=== PATIENT | male | born 1955 | race Caucasian/White ===

== ENCOUNTER 2017-07-05 14:35 | Inpatient (IN) | payer OTHER, MEDICAID ==
[2017-07-05] MEDS ORDERED: NS 1,000 ML IV ONE (14:53)
[2017-07-05] MEDS ORDERED: ONDANSETRON 4 MG/2 ML VIAL IVP ONE (14:53)
--- NOTE | 2017-07-05 14:58 | EDPHY ---
H & P Stated Complaint: generalized abd/and kidney pain x 1 month/has seen pcp Time Seen by Provider: 07/05/17 14:49 - Personal History Current Tetanus/Diphtheria Vaccine: Unsure - Medical/Surgical History Hx Asthma: No Hx Chronic Respiratory Disease: No Hx Diabetes: No Hx Cardiac Disease: Yes Hx Renal Disease: No Hx Cirrhosis: No Hx Alcoholism: No Hx HIV/AIDS: No Hx Splenectomy or Spleen Trauma: No Other PMH: htn/cardiac stents/ataxia - Social History Smoking Status: Never smoked Constitutional: Initial Vital Signs Temperature (C) 37.2 C 07/05/17 14:40 Heart Rate 90 07/05/17 14:40 Respiratory Rate 18 07/05/17 14:40 Blood Pressure 148/92 H 07/05/17 14:40 O2 Sat (%) 95 07/05/17 14:40 O2 Delivery Mode Room Air Allergies/Adverse Reactions: No Known Allergies Allergy (Unverified 07/05/17 14:39) Home Medications: Medication Instructions Recorded Aspirin 81mg (*) 07/05/17 Atenolol 07/05/17 Atorvastatin Calcium 07/05/17 Escitalopram Oxalate 07/05/17 Medical Decision Making - Diagnostics Imaging Results: Imaging Impressions Abdomen CT 07/05/17 15:39 Impression: 1. Circumferential thickening of the 2nd portion of the duodenum with adjacent fat stranding and adenopathy, with apparent ulcer in the medial 2nd portion duodenum. While these findings could be reactive/inflammatory, malignancy cannot be excluded. 2. Likely reactive pancreatitis in the pancreatic head secondary to the duodenal inflammation. 3. Cholelithiasis without evidence of cholecystitis. 4. Diverticulosis. 5. Coronary artery atherosclerosis. 6. Additional findings as above. Findings discussed with Ulices Campos MD, 07/05/2017 at 17:01. Imaging: Discussed imaging studies w/ real estate economist Radiologist, I viewed and interpreted images myself ED Course/Re-evaluation: CHIEF COMPLAINT: Nausea vomiting abdominal and flank pain HISTORY OF PRESENT ILLNESS: This patient states that he has had abdominal and flank pain over the last 3 weeks apparently. He seen his primary care doctor who did a urinalysis at 1 point and said he maybe has kidney stones but no other testing was performed. The yesterday and today is abdominal pain worsened and he developed nausea and vomiting. This patient always feels nauseated, he has cerebellar ataxia. He is also wheelchair bound. He has good sensation in his abdomen. He denies any fevers or chills or systemic type symptoms. REVIEW OF SYSTEMS: A 10 point review of systems was performed and is negative with the exception of the elements mentioned in the history of present illness. PHYSICAL EXAM: HR, BP, O2 Sat, RR. Temp noted General Appearance: Alert, well hydrated, appropriate, and non-toxic appearing. Head: Atraumatic without scalp tenderness or obvious injury Eyes: Pupils equal, round, reactive to light and accommodation, EOMI, no trauma , no injection. Ears: Clear bilaterally, no perforation, normal landmarks Nose: Atraumatic, no rhinorrhea, clear. Throat: There is no erythema or exudates, no lesions, normal tonsils, mucus membranes moist. Neck: Supple, nontender, no lymphadenopathy. Respiratory: No retractions, no distress, no wheezes, and no accessory muscle use. Lungs are clear to auscultation bilaterally. Cardiovascular: Regular rate and rhythm, no murmurs, rubs, or gallops. GI: soft, nontender, non-distended, no masses, no rebound, no guarding, no peritoneal signs. Abdomen is benign Musculoskeletal: Normal active ROM of all extremities, atraumatic. Neurological: Alert, appropriate, and interactive. Abnormal cerebellar exam which is chronic Skin: No rashes, good turgor, no nodules on palpation. 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 DIAGNOSTICS/PROCEDURES/CRITICAL CARE TIME: Abdominal CT: circumferential duodenal ulcer, no perforation, associated reactive lymph nodes. DIFFERENTIAL DIAGNOSIS: The differential diagnosis for the patient's abdominal pain included but was not limited to ulcer, appendicitis, cholecystitis, hernias, testicular torsion, gastritis, and urinary tract infection. MEDICAL DECISION MAKING: This is a wheelchair-bound 61 y/o male with cerebellar ataxia who presents with a 3-week history of abdominal pain, flank pain, nausea, and vomiting. His abdomen is benign and his neuro exam is at baseline. Plan for IV, labs, UA, and abdominal CT. 4mg IV Zofran and 1L IV NS ordered. 1616: Reassessed patient and discussed laboratory findings, which are largely unremarkable. Awaiting CT results. CT shows circumferential duodenal ulcer. 80mg IV Pantoprazole ordered. GI paged. 1710: Consulted with Dr. Reddy, GI. He recommends admission and plans to scope him tomorrow. Spoke with hospitalist service. Dr. Morales accepts admission. - Data Points Laboratory Results: Laboratory Results 07/05/17 15:00 07/05/17 15:00 07/05/17 07/05/17 07/05/17 16:15 15:06 15:00 WBC RBC Hgb POC Hgb 17.3 gm/dL gm/dL (13.7-17.5) Hct POC Hct 51 % % (40-51) MCV MCH MCHC RDW Plt Count MPV Neut % (Auto) Lymph % (Auto) [place] % (Auto) Eos % (Auto) Baso % (Auto) Nucleat RBC Rel Count Absolute Neuts (auto) Absolute Lymphs (auto) Absolute Monos (auto) Absolute Eos (auto) Absolute Basos (auto) Absolute Nucleated RBC Immature Gran % Immature Gran # POC Sodium 142 mEq/L mEq/L (135-145) Sodium 143 mEq/L mEq/L (135-145) POC Potassium 3.7 mEq/L mEq/L (3.3-5.0) Potassium 4.1 mEq/L mEq/L (3.5-5.2) POC Chloride 100 mEq/L mEq/L (97-110) Chloride 99 mEq/L mEq/L (97-110) Carbon Dioxide 28 mEq/l mEq/l (22-31) Anion Gap 16 mEq/L mEq/L (8-16) POC BUN 25 mg/dL H mg/dL (7-23) BUN 24 mg/dL H mg/dL (7-23) Creatinine 0.8 mg/dL mg/dL (0.7-1.3) POC Creatinine 0.8 mg/dL mg/dL (0.7-1.3) Estimated GFR > 60 Glucose 98 mg/dL mg/dL (70-100) POC Glucose 108 mg/dL H mg/dL (70-100) Calcium 9.4 mg/dL mg/dL (8.5-10.4) Total Bilirubin 1.1 mg/dL mg/dL (0.1-1.4) Conjugated Bilirubin 0.4 mg/dL mg/dL (0.0-0.5) Unconjugated Bilirubin 0.7 mg/dL mg/dL (0.0-1.1) AST 18 IU/L IU/L (17-59) ALT 27 IU/L IU/L (21-72) Alkaline Phosphatase 146 IU/L H IU/L (38-126) Total Protein 7.6 g/dL g/dL (6.3-8.2) Albumin 4.3 g/dL g/dL (3.5-5.0) Lipase 152 IU/L IU/L (23-300) Urine Color YELLOW Urine Appearance CLEAR Urine pH 5.0 (5.0-7.5) Ur Specific [place] 1.021 (1.002-1.030) Urine Protein NEGATIVE (NEGATIVE) Urine Ketones 1+ H (NEGATIVE) Urine Blood NEGATIVE (NEGATIVE) Urine Nitrate NEGATIVE (NEGATIVE) Urine Bilirubin NEGATIVE (NEGATIVE) Urine Urobilinogen 2.0 EU H EU (0.2-1.0) Ur Leukocyte Esterase NEGATIVE (NEGATIVE) Urine RBC 1-3 /hpf /hpf (0-3) Urine WBC 1-3 /hpf /hpf (0-3) Ur Epithelial Cells TRACE /lpf /lpf (NONE-1+) Urine Mucus 4+ /lpf H /lpf (NONE-1+) Urine Glucose NEGATIVE (NEGATIVE) 07/05/17 15:00 WBC 11.48 10^3/uL H 10^3/uL (3.80-9.50) RBC 5.54 10^6/uL 10^6/uL (4.40-6.38) Hgb 17.1 g/dL g/dL (13.7-17.5) POC Hgb Hct 50.5 % % (40.0-51.0) POC Hct MCV 91.2 fL fL (81.5-99.8) MCH 30.9 pg pg (27.9-34.1) MCHC 33.9 g/dL g/dL (32.4-36.7) RDW 13.8 % % (11.5-15.2) Plt Count 248 10^3/uL 10^3/uL (150-400) MPV 12.0 fL H fL (8.7-11.7) Neut % (Auto) 79.8 % H % (39.3-74.2) Lymph % (Auto) 10.8 % L % (15.0-45.0) [place] % (Auto) 7.8 % % (4.5-13.0) Eos % (Auto) 0.9 % % (0.6-7.6) Baso % (Auto) 0.5 % % (0.3-1.7) Nucleat RBC Rel Count 0.0 % % (0.0-0.2) Absolute Neuts (auto) 9.16 10^3/uL H 10^3/uL (1.70-6.50) Absolute Lymphs (auto) 1.24 10^3/uL 10^3/uL (1.00-3.00) Absolute Monos (auto) 0.90 10^3/uL H 10^3/uL (0.30-0.80) Absolute Eos (auto) 0.10 10^3/uL 10^3/uL (0.03-0.40) Absolute Basos (auto) 0.06 10^3/uL 10^3/uL (0.02-0.10) Absolute Nucleated RBC 0.00 10^3/uL 10^3/uL (0-0.01) Immature Gran % 0.2 % % (0.0-1.1) Immature Gran # 0.02 10^3/uL 10^3/uL (0.00-0.10) POC Sodium Sodium POC Potassium Potassium POC Chloride Chloride Carbon Dioxide Anion Gap POC BUN BUN Creatinine POC Creatinine Estimated GFR Glucose POC Glucose Calcium Total Bilirubin Conjugated Bilirubin Unconjugated Bilirubin AST ALT Alkaline Phosphatase Total Protein Albumin Lipase Urine Color Urine Appearance Urine pH Ur Specific [place] Urine Protein Urine Ketones Urine Blood Urine Nitrate Urine Bilirubin Urine Urobilinogen Ur Leukocyte Esterase Urine RBC Urine WBC Ur Epithelial Cells Urine Mucus Urine Glucose Medications Given: Discontinued Medications Sodium Chloride (Ns) 1,000 mls @ 0 mls/hr IV EDNOW ONE; Wide Open PRN Reason: Protocol Stop: 07/05/17 14:54 Last Admin: 07/05/17 15:04 Dose: 1,000 mls Ondansetron HCl (Zofran) 4 mg IVP EDNOW ONE Stop: 07/05/17 14:54 Last Admin: 07/05/17 15:03 Dose: 4 mg Pantoprazole Sodium (Protonix) 80 mg IVP EDNOW ONE Stop: 07/05/17 17:07 Last Admin: 07/05/17 17:15 Dose: 80 mg Point of Care Test Results: 07/05/17 15:06 POC Sodium 142 POC Potassium 3.7 POC Chloride 100 POC BUN 25 H POC Creatinine 0.8 POC Glucose 108 H Departure - Departure Disposition: [facility] Inpatient Acute Clinical Impression: Duodenal ulcer, circumferential Condition: Fair Referrals: Nory Garcia MD [Primary Care Provider] - As per Instructions
[2017-07-05 15:27] LABS: PLATELET COUNT 248 10^3/uL (150-400)
[2017-07-05] MEDS ORDERED: IOPAMIDOL (ISOVUE-300) 100 ML BTL ONE (16:22)
[2017-07-05] MEDS ORDERED: PANTOPRAZOLE SODIUM 40 MG VIAL IVP ONE (17:06)
[2017-07-05] MEDS ORDERED: PROMETHAZINE HCL 25 MG/ML INJ IVP PRN (17:48)
[2017-07-05] MEDS ORDERED: ACETAMINOPHEN 325 MG TAB PO PRN (17:48)
[2017-07-05] MEDS ORDERED: oxyCODONE IR 5 MG TAB PO PRN (17:48)
[2017-07-05] MEDS ORDERED: ONDANSETRON 4 MG/2 ML VIAL IVP PRN (17:48)
[2017-07-05] MEDS ORDERED: HYDROmorphone HCL/NS 0.5 MG/ML SYR IVP PRN (17:48)
[2017-07-05] MEDS: NS 1,000 ML IV SCH (18:22)
--- NOTE | 2017-07-05 18:25 | GHP ---
[f rep st] HISTORY AND PHYSICAL DATE OF ADMISSION: 07/05/2017 CHIEF COMPLAINT: Abdominal pain. HISTORY: The patient is a 61-year-old male, who has had abdominal pain for many months, it has been worsening over the last week and got very severe yesterday with profuse nausea, vomiting. He is curr ently unable to keep anything down. He described as an epigastric pain that comes and goes, but does not get worse with eating. Denies any blood in his stool. He has had 10-pound weight loss. The pa in radiates to his back. PAST MEDICAL HISTORY: 1. Coronary artery disease, status post stents 2007. 2. Hypertension. 3. Cerebellar ataxia. Wheelchair bound. MEDICATIONS: Please see computer record for detailed list. ALLERGIES: No known drug allergies. SOCIAL HISTORY: No smoking. No alcohol. He lives with his . [place] REVIEW OF SYSTEMS: Complete review of systems obtained. Review of systems negative for constitution al, HEENT, GI, pulmonary, vascular, , hematology, skin, muscular, endocrine, psych except for posit kandace as noted in HPI. FAMILY HISTORY: Reviewed and noncontributory to presenting complaint. PHYSICAL EXAMINATION: GENERAL: Well-developed, well-nourished male, in no distress. VITAL SIGNS: Temp 37.2, pulse 77, blood pressure 139/88, saturating 95% on room air. HEENT: Normal conjunctivae. Pupils equal, reactive to light. ENT: Normal ears, nose. Hearing intact. Normal teeth. Orophar ynx moist. NECK: Trachea midline. No thyromegaly. CHEST: Normal respiratory effort. LUNGS: Faizan ar to auscultation bilaterally. CARDIOVASCULAR: Regular rate, regular rhythm. No murmur. No extre mity edema. ABDOMEN: Soft, nontender. No hepatosplenomegaly. SKIN: Warm, dry, intact. No rash. MUSCULOSKELETAL: No cyanosis or clubbing. Strength 5/5, upper and lower extremities. NEUROLOGIC: Cranial nerves intact. Normal sensation to light touch. PSYCH: Alert and oriented x3. Normal aff ect. Normal judgment. Normal memory. LABORATORY DATA: White count 11.4, hematocrit 50.5, platelets 248. Sodium 143, potassium 4.1, chlor srinivasan 99, bicarb 28, BUN 24, creatinine 0.8, glucose 98. LFTs are negative. Urinalysis is negative. CT scan of the abdomen and pelvis shows circumferential thickening of the 2nd portion of duodenum wit h adenopathy and ulceration. There is some associated pancreatitis due to extension of inflammation. ASSESSMENT/PLAN: 1. Duodenal ulcer versus malignancy. Will make him nil per os after midnight. Gastroenterology mary l scope him in the morning. We will empirically place him on a proton pump inhibitor. 2. Cerebellar ataxia. Wheelchair bound at baseline. We will consult Physical Therapy/Occupational Therapy. 3. Coronary artery disease, status post stents 2007. Will hold anti-platelet drugs. CODE STATUS: Full. ADMISSION STATUS: 1. Will admit to observation. We will re-evaluate tomorrow post EGD regarding ongoing need for hosp italization. 2. Deep venous thrombosis prophylaxis. Given the plan for procedure which will likely need biopsy, will do sequential compression devices only. /[id number]/MODL
[2017-07-06] MEDS: NS 1,000 ML IV SCH (03:22)
[2017-07-06 05:10] LABS: PLATELET COUNT 169 10^3/uL (150-400)
[2017-07-06] MEDS: ATORVASTATIN CALCIUM 40 MG TAB PO SCH (08:48)
[2017-07-06] MEDS: ESCITALOPRAM OXALATE 10 MG TAB PO SCH (08:48)
[2017-07-06] MEDS ORDERED: ATENOLOL 25 MG TAB PO SCH (09:00)
[2017-07-06] MEDS ORDERED: PANTOPRAZOLE SODIUM 40 MG VIAL IVP SCH (09:00)
[2017-07-06] MEDS ORDERED: LR 1,000 ML IV ONE (12:47)
--- NOTE | 2017-07-06 12:52 | HOSPPROG ---
Hospitalist Progress Note Assessment/Plan: #Duodenal ulcer vs malignancy -will get endoscopy today -on PPI #Bradycardia, he denies a hx of this. Not symptomatic -He did get Atenolol today which he takes for PVC. This will be held -start telemetry -check EKG #Hx of PVC. -denies palpitations -mgmt per above -check Mg #Hx of CAD and previous NM -Holding antiplatelets #Weight Loss #Abd Pain #N/V -antiemetics #Wheel chair bound due to cerebellar Ataxia, long standing -PT/OT SCD's Subjective: no abd pain currenlty . Awaiting endoscopy. no cp or sob. mild nausea. some bradycardia, not symptomatic Objective: Vital Signs Temp Pulse Resp BP Pulse Ox 36.6 C 48 L 16 105/64 94 07/06/17 11:42 07/06/17 11:42 07/06/17 11:42 07/06/17 11:42 07/06/17 11:42 Laboratory Results 07/06/17 04:43 07/06/17 04:43 07/05/17 07/06/17 07/07/17 05:59 05:59 05:59 Intake Total 1250 Output Total 800 Balance 1250 -800 - Physical Exam Constitutional: no apparent distress Eyes: PERRL, EOMI Ears, Nose, Mouth, Throat: moist mucous membranes, hearing normal, ears appear normal Cardiovascular: bradycardia, No JVD Respiratory: no respiratory distress Gastrointestinal: normoactive bowel sounds, soft, non-tender abdomen Skin: warm Neurologic: AAOx3 Psychiatric: interacting appropriately, not anxious, not encephalopathic Lymph, Heme, Immunologic: No petechiae ICD10 Worksheet Patient Problems: Problems Problem Status Onset Duodenal ulcer Acute
--- NOTE | 2017-07-06 13:22 | CPEKG ---
Heart Rate: 65 RR Interval: 923 P-R Interval: 148 QRSD Interval: 98 QT Interval: 444 QTC Interval: 462 P [place]: 36 QRS [place]: 4 T Wave [place]: 114 EKG Severity - ABNORMAL ECG - EKG Impression: SINUS RHYTHM EKG Impression: VENTRICULAR TRIGEMINY EKG Impression: NONSPECIFIC T ABNORMALITIES, LATERAL LEADS Electronically Signed By: Donald Harley 07-Jul-2017 06:46:58
--- NOTE | 2017-07-06 13:45 | PDMN ---
Medical Necessity Medical necessity: change to IP; los>2mn for duodenal ulcer vs malignancy, bradycardia, N/V, abd pain; requires endoscopy, further w/u for bradycardia and telemetry; comorbid PVC, CAD, cerebellar ataxia, w/c bound; per order and progress note 07/06/17
[2017-07-06] MEDS ORDERED: ALBUTEROL 3 ML DEYVIAL IH PRN (14:02)
[2017-07-06] MEDS ORDERED: LR 500 ML IV PRN (14:02)
[2017-07-06] MEDS ORDERED: ONDANSETRON 4 MG/2 ML VIAL IVP PRN (14:02)
[2017-07-06] MEDS ORDERED: NALOXONE HCL 0.4 MG/ML INJ IVP PRN (14:02)
--- NOTE | 2017-07-06 14:02 | PDANEPAE ---
ANE Past Medical History - Pulmonary History Hx Oxygen in Use at Home: No Hx Sleep Apnea: No Sleep Apnea Screening Result - Last Documented: Negative - Endocrine History Hx Diabetes: No - Chronic Pain History Chronic Pain: No ANE Review of Systems Review of Systems: ANE Patient History - Allergies Allergies/Adverse Reactions: No Known Allergies Allergy (Unverified 07/05/17 14:39) - Home Medications Home Medications: Aspirin [Aspirin 325 mg (*)] 325 mg PO DAILY 07/05/17 [Last Taken Unknown] Atenolol [Tenormin 25 mg (*)] 25 mg PO DAILY 07/05/17 [Last Taken Unknown] Atorvastatin Calcium [Lipitor 40 mg (*)] 40 mg PO DAILY 07/05/17 [Last Taken Unknown] Escitalopram Oxalate [Lexapro] 10 mg PO DAILY 07/05/17 [Last Taken Unknown] Multivitamins [Multivitamin (*)] 1 each PO DAILY 07/05/17 [Last Taken Unknown] - NPO status NPO Since - Liquids (Date): 07/06/17 NPO Since - Liquids (Time): 00:00 NPO Since - Solids (Date): 07/06/17 NPO Since - Solids (Time): 00:00 - Smoking Hx Smoking Status: Never smoked ANE Labs/Vital Signs - Labs Result Diagrams: 07/06/17 04:43 07/06/17 04:43 - Vital Signs Blood Pressure: 108/71 Heart Rate: 48 Respiratory Rate: 14 O2 Sat (%): 95 Height: 170.18 cm Weight: 66.678 kg ANE Physical Exam - Airway Neck exam: decreased ROM Mallampati Score: Class 2 Mouth exam: normal dental/mouth exam - Pulmonary Pulmonary: no respiratory distress, no rales or rhonchi, clear to auscultation - Cardiovascular Cardiovascular: regular rate and rhythym, no murmur, rub, or gallop - ASA Status ASA Status: III ANE Anesthesia Plan Anesthesia Plan: MAC
[2017-07-06] MEDS ORDERED: PROPOFOL 200 MG/20 ML VIAL ONE (14:03)
--- NOTE | 2017-07-06 14:19 | GCON ---
[f rep st] CONSULTATION REQUESTING PHYSICIAN: Dr. Gris Morales REASON FOR CONSULTATION: Abdominal pain. HISTORY OF PRESENTING ILLNESS: Briefly, the patient is a pleasant 61-year-old male who has had appro ximately 3 or 4 months of gradually worsening abdominal pain. This has gotten acutely worse over the last several days and he presents to the emergency room with profuse nausea and vomiting. He has be en unable to tolerate foods. He describes the pain as an intermittent epigastric pain, worse with ea ting. Reports no bloody stool. He has had no fever. Reports an approximate 10-pound weight loss ov er the same period of time. He describes the pain as radiating to the bilateral flanks and back. It was initially felt that he may have a kidney stone. He uses nonsteroidal anti-inflammatory therapie s on an intermittent basis, although rarely. He reports no prior history of prior similar symptoms. PAST MEDICAL HISTORY: Includes coronary artery disease, hypertension, and cerebellar ataxia. ALLERGIES: None. OUTPATIENT MEDICINES: Aspirin, atenolol, atorvastatin, and escitalopram. FAMILY HISTORY: Negative for peptic ulcer disease. SOCIAL HISTORY: He does not drink, smoke, or use drugs. REVIEW OF SYSTEMS: A complete 14-point review was undertaken with the patient. Pertinent positives and negatives are detailed in the History of Present Illness. PHYSICAL EXAM: GENERAL: This is a well-developed male, in no apparent distress. HEENT: His pupils are equal, round, reactive to light and accommodation. His sclerae are nonicteric. His oropharynx is clear. NECK: Supple without lymphadenopathy. HEART: Regular, without murmurs. ABDOMEN: Soft, but mildly tender in the epigastrium. EXTREMITIES: Free of cyanosis, clubbing, and edema. NEURO: Grossly nonfocal. SKIN: Warm and dry. PSYCH: Normal mood and affect. LABORATORY: White count of 8.9, hemoglobin of 13.6, hematocrit of 41.5, platelet count of 169. Sodi um of 142, potassium of 3.7, chloride of 110, bicarb of 27, BUN of 19, creatinine of 0.6. AST, ALT, total bilirubin were normal. Alkaline phosphatase minimally elevated at 146, lipase normal. CT scan of the abdomen on 07/05/2017, reveals duodenitis with some circumferential thickening in the 2nd portion of the duodenum with associated adjacent fat stranding and adenopathy. There is probably some reactive pancreatitis nearby, as well. IMPRESSION AND RECOMMENDATIONS: The patient has had worsening abdominal pain. His x-ray is concerni ng for peptic disease or other inflammatory lesion of the small bowel. In order to evaluate this fin ding, I recommend upper endoscopy. He should remain n.p.o., on a proton pump inhibitor meanwhile. /[id number]/MODL
--- NOTE | 2017-07-06 14:21 | GIREPORT ---
[facility] - Endoscopy Department Patient Name: Sabas Funes Procedure Date: 07/06/2017 1:57 PM Patient Type: Inpatient Attending MD/ ER Physician: Benjamin Reddy MD Procedure: Upper GI endoscopy Indications: Epigastric abdominal pain, Abnormal CT of the GI tract Providers: Benjamin Reddy MD Medicines: Sedation Administered by an Anesthesia Professional Complications: No immediate complications. Description of Procedure: After obtaining informed consent, the endoscope was passed under direct vision. Throughout the procedure, the patient's blood pressure, pulse, and oxygen saturations were monitored continuously. The Endoscope was intro duced through the mouth, and advanced to the third part of duodenum. The uppe r GI endoscopy was accomplished without difficulty. The patient tolerated th e procedure well. Findings: The examined esophagus was normal. Diffuse mild inflammation characterized by congestion (edema) was found in the entire examined stomach. Biopsies were taken with a cold forceps fo r histology. One non-bleeding cratered duodenal ulcer with no stigmata of bleeding w as found in the second portion of the duodenum. Biopsies were taken with a cold forceps for histology. Estimated Blood Loss: Estimated blood loss: none. Post Op Diagnosis: - Normal esophagus. - Gastritis. Biopsied. - One non-bleeding duodenal ulcer with no stigmata of bleeding. Biopsie d. This ulcer was large and circumferential. Likely peptic in nature, but malignancy can not be excluded. Recommendation: - [facility]. - Use a proton pump inhibitor PO BID. - Advance diet as tolerated - advance as tolerated. - Perform an H. pylori serology. Attending Participation: I personally performed the entire procedure. Benjamin Reddy MD Benjamin Reddy MD 07/06/2017 2:20:24 PM This report has been signed electronicallyDaus Maureen MD Number of Addenda: 0 Note Initiated On: 07/06/2017 1:57 PM [email or web address]
--- NOTE | 2017-07-06 14:23 | SUROPNOTE ---
[facility] Operative Report - Surgery BRIEF GI EGD NOTE INDICATION: abd pain, abn CT MEDICATION: per anesthesia COMPLICATIONS: none acutely FINDINGS: 1. normal esopahgus 2. mild gastritis - bx'd 3. large, circumferential ulcer in the 2nd portion of the duodenum - bx'd IMPRESSION/RECS 1. Abd pain - likely form duodenitis and ulcer - bx pending to r/u malignancy - advance diet - po ppi bid x 12-16 weeks - check h.pylori serology - hope to dc home once tolerating po - will sign off, call with questions. My office with contact patient with pathology results.
[2017-07-06] MEDS ORDERED: LIDOCAINE 2% 5 ML SDV ONE (14:27)
--- NOTE | 2017-07-06 14:28 | POSTANESTH ---
Post Anesthetic Evaluation Cardiovascular Status: Normal, Stable, Similar to Pre-Op Cond Respiratory Status: Normal, Stable, Similar to Pre-op Cond. Level of Consciousness/Mental Status: Can Participate in Eval Pain Control: Adequate, Prn Tx Ordered Nausea/Vomiting Control: Adequate, Prn Tx Ordered Complications Possibly Related to Anesthesia: None Noted
--- NOTE | 2017-07-06 16:05 | ASMTCMCOM ---
CM Note CM Note Notes: Met w/pt and , he has cerebellar ataxia but is in for abdominal pain but is mostly wheelchair bound. Pt lives at home with and has caregivers 3-5 hours/day. Pt lives in a home w/an elevator, PT/OT state that pt is at baseline and can dc back home with and caregivers. CM available for any changes. DC Plan: Independent Date Signed: 07/06/2017 04:05 PM Electronically Signed By:Shona Vela RN
[2017-07-06] MEDS: PANTOPRAZOLE SODIUM 40 MG TAB PO SCH (20:09)
[2017-07-07] MEDS: ATORVASTATIN CALCIUM 40 MG TAB PO SCH (09:44)
[2017-07-07] MEDS: PANTOPRAZOLE SODIUM 40 MG TAB PO SCH (09:44)
[2017-07-07] MEDS: ESCITALOPRAM OXALATE 10 MG TAB PO SCH (09:44)
[2017-07-07 11:29] VITALS: BP 113/60
--- NOTE | 2017-07-07 11:35 | ASMTCMCOM ---
CM Note CM Note Notes: Today SWer consulted with bedside RN who confirms that Pt. is still an independent discharge. Has caregivers and a supportive . Pt. is mostly wheelchair bound. Returning home today. Date Signed: 07/07/2017 11:34 AM Electronically Signed By:Kala Mantilla LCSW
--- NOTE | 2017-07-07 11:36 | ASMTLACE ---
LACE Length of stay for Answers: 2 days current admission Acuity / Level of Answers: Yes Care: Did the patient have an inpatient admission? Comorbidities - select Answers: Coronary Artery Disease all that apply Other Notes: HTN, mostly wheelchair bound # of Emergency department Answers: 1-2 visits in the last 6 months Score: 9 Date Signed: 07/07/2017 11:35 AM Electronically Signed By:Kala Mantilla LCSW
--- NOTE | 2017-07-07 15:14 | GDS ---
[f rep st] DISCHARGE SUMMARY DISCHARGE DIAGNOSIS: 1. Duodenal ulcer and duodenitis. 2. Subacute abdominal pain, secondary to above. 3. History of coronary artery disease status post stenting in 2007. 4. Hypertension. 5. Ataxia. HISTORY: This is a 61-year-old male who presented with abdominal pain for some time. HOSPITAL COURSE: CT scan suggested abnormalities in the duodenum. EGD was done and showed an ulcer as well as duodenitis. He was started on a PPI. He is tolerating his diet and will be discharged ho nj. He is on aspirin, presumably for his coronary artery disease but also for some other neurological iss ue. I am going to have him hold his aspirin until he sees Primary Care. He does need to follow up w [facility] in a week to follow up with biopsies and H pylori. DISPOSITION: Home. DISCHARGE MEDICATIONS: He is to continue his home medicines except aspirin, which he will discontinu e. In addition, he will be given Protonix 40 mg b.i.d. FOLLOWUP INSTRUCTIONS: He is instructed to follow up with primary care doctor in 1-2 weeks to follow up on biopsies. /[id number]/MODL
== END 2017-07-07 13:36 | disposition home or self-care (01) | DRG 384 ==
LOC: OBSVTOIN 17:22 → F3E 17:49
PROVIDERS: ADMIT Internal Medicine; ATTEND Internal Medicine
DX: K26.9 Duodenal ulcer, unspecified as acute or chronic, without hemorrhage or perforation (principal); K29.80 Duodenitis without bleeding; I25.10 Atherosclerotic heart disease of native coronary artery without angina pectoris; I10 Essential (primary) hypertension; G11.9 Hereditary ataxia, unspecified; Z95.5 Presence of coronary angioplasty implant and graft; Z99.3 Dependence on wheelchair; Z79.82 Long term (current) use of aspirin
CPT/HCPCS: 82947-QW; 96374; 97161-GP; 97165-GO; G0378; G8978-GP-CI; G8979-GP-CI; G8980-GP-CI; G8987-GO-CJ; G8988-GO-CJ; G8989-GO-CJ; J2405; J2704; Q9967

== ENCOUNTER 2017-08-28 17:32 | Inpatient (IN) | payer OTHER, MEDICAID ==
[2017-08-28] MEDS ORDERED: NS 1,000 ML IV ONE (18:28)
--- NOTE | 2017-08-28 18:36 | EDPHY ---
H & P Stated Complaint: Dark urine/white stool Time Seen by Provider: 08/28/17 18:20 HPI/ROS: CHIEF COMPLAINT: Painless jaundice and weight stool HISTORY OF PRESENT ILLNESS: Patient is a 62-year-old man with a history of coronary artery disease and cerebellar atrophy and chronic speech and balance difficulties who comes to the emergency department stating that he has had white stool for the last 5 days and today noticed that his urine is dark. His states she also noticed that his eyes were yellow. He denies any abdominal pain. No fevers. No shortness of breath. No diarrhea or vomiting. REVIEW OF SYSTEMS: Constitutional: denies: chills, fever, recent illness, recent injury EENTM: denies: blurred vision, double vision, nose congestion Respiratory: denies: cough, shortness of breath Cardiac: denies: chest pain, irregular heart rate, lightheadedness, palpitations Gastrointestinal/Abdominal: See HPI no pain, nausea vomiting Genitourinary: denies: dysuria, frequency, hematuria, pain Musculoskeletal: denies: joint pain, muscle pain Skin: denies: lesions, rash, jaundice, bruising Neurological: denies: headache, numbness, paresthesia, tingling, dizziness, weakness Hematologic/Lymphatic: denies: blood clots, easy bleeding, easy bruising Immunologic/allergic: denies: HIV/AIDS, transplant EXAM: GENERAL: Well-appearing, well-nourished and in no acute distress. HEAD: Atraumatic, normocephalic. EYES: Pupils equal round and reactive to light, extraocular movements intact, sclera icteric, conjunctiva are yellow. ENT: TMs normal, nares patent, oropharynx clear without exudates. Moist mucous membranes. NECK: Normal range of motion, supple without lymphadenopathy or JVD. LUNGS: Breath sounds clear to auscultation bilaterally and equal. No wheezes rales or rhonchi. HEART: Regular rate and rhythm without murmurs, rubs or gallops. ABDOMEN: Soft, nontender, normoactive bowel sounds. No guarding, no rebound. No masses appreciated. No obvious ascites BACK: No CVA tenderness, no spinal tenderness, step-offs or deformities EXTREMITIES: Normal range of motion, no pitting or edema. No clubbing or cyanosis. NEUROLOGICAL: Cranial nerves II through XII grossly intact. Normal speech, normal gait. 07/07 strength, normal movement in all extremities, normal sensation PSYCH: Normal mood, normal affect. SKIN: Warm, dry, normal turgor, no visible rashes or lesions. Source: Patient Exam Limitations: No limitations - Personal History Current Tetanus/Diphtheria Vaccine: Yes - Medical/Surgical History Hx Asthma: No Hx Chronic Respiratory Disease: No Hx Diabetes: No Hx Cardiac Disease: Yes Hx Renal Disease: No Hx Cirrhosis: No Hx Alcoholism: No Hx HIV/AIDS: No Hx Splenectomy or Spleen Trauma: No Other PMH: htn/cardiac [id number]/ataxia - Social History Smoking Status: Former smoker Constitutional: Initial Vital Signs Temperature (C) 36.8 C 08/28/17 17:55 Heart Rate 80 08/28/17 17:55 Respiratory Rate 16 08/28/17 17:55 Blood Pressure 126/82 H 08/28/17 17:55 O2 Sat (%) 92 08/28/17 17:55 O2 Delivery Mode Room Air Allergies/Adverse Reactions: No Known Allergies Allergy (Unverified 08/28/17 17:58) Home Medications: Medication Instructions Recorded Atenolol [Tenormin 25 mg (*)] 25 mg PO DAILY@16 07/05/17 Atorvastatin Calcium [Lipitor 40 40 mg PO DAILY@07/05/17 mg (*)] Escitalopram Oxalate [Lexapro 10 10 mg PO DAILY@07/05/17 MG] Medical Decision Making - Diagnostics Imaging Results: Imaging Impressions Abdomen Ultrasound 08/28/17 18:28 Impression: 1. Technically limited study secondary to overlying bowel gas. 2. There is an ill-defined area of hypoechogenicity anterior to the IVC at the expected level of the previously-noted inflamed duodenum, obscuring the pancreatic head. 3. Cholelithiasis with a potential stone in the cystic duct, and borderline gallbladder wall thickening. 4. Interval development of intra- and extrahepatic bile duct dilatation, compared to the previous CT scan in July 2017. Findings were discussed with JOE CONTRERAS MD at 19:53, on 08/28/2017. A contrast-enhanced CT scan has also been requested, and will be separately reported. Abdomen CT 08/28/17 19:28 Impression: 1. Interim development of intra and extra hepatic bile duct dilatation since 07/05, with more pronounced enlargement and diminished attenuation of the pancreatic head, worrisome for an underlying neoplasm. This is also seen within the context of several peripancreatic lymph nodes, which also may be neoplastic rather than reactive. 2. Persistent though less pronounced second portion duodenal wall inflammation. 3. Gallbladder hydrops with cholelithiasis. 4. Sigmoid colon diverticulosis. 5. Mild prostatomegaly. Findings were discussed with JOE CONTRERAS MD at 19:54, on 08/28/2017. Imaging: Discussed imaging studies w/ crew caller Radiologist ED Course/Re-evaluation: We discussed the patient's ultrasound. After reviewing his previous records he was admitted 1 month ago with duodenal thickening and had an upper endoscopy with GI who diagnosed a duodenal ulcer and started PPIs. His symptoms have not worsened. I will order CT scan. On CT scan the patient's pancreatic head is enlarged compared to 1 month ago. Also his intrahepatic bile ducts have dilated. I am concerned about pancreatic cancer. I will admit to the medical service for further workup. 8:15 p.m. I discussed the case with Dr. Mesa who will admit to the medical service. Differential Diagnosis: Partial list of the Differential diagnosis considered include but were not limited to; pancreatic cancer, colon cancer, biliary duct obstruction and although unlikely based on the history and physical exam, I also considered ischemia, volvulus. - Data Points Laboratory Results: Laboratory Results 08/28/17 18:51 08/28/17 18:51 08/28/17 08/28/17 08/28/17 18:51 18:51 18:51 WBC 6.13 10^3/uL 10^3/uL (3.80-9.50) RBC 4.98 10^6/uL 10^6/uL (4.40-6.38) Hgb 15.2 g/dL g/dL (13.7-17.5) Hct 46.2 % % (40.0-51.0) MCV 92.8 fL fL (81.5-99.8) MCH 30.5 pg pg (27.9-34.1) MCHC 32.9 g/dL g/dL (32.4-36.7) RDW 13.2 % % (11.5-15.2) Plt Count 220 10^3/uL 10^3/uL (150-400) MPV 11.7 fL fL (8.7-11.7) Neut % (Auto) 60.0 % % (39.3-74.2) Lymph % (Auto) 18.8 % % (15.0-45.0) Lasalle % (Auto) 14.8 % H % (4.5-13.0) Eos % (Auto) 5.1 % % (0.6-7.6) Baso % (Auto) 1.1 % % (0.3-1.7) Nucleat RBC Rel Count 0.0 % % (0.0-0.2) Absolute Neuts (auto) 3.68 10^3/uL 10^3/uL (1.70-6.50) Absolute Lymphs (auto) 1.15 10^3/uL 10^3/uL (1.00-3.00) Absolute Monos (auto) 0.91 10^3/uL H 10^3/uL (0.30-0.80) Absolute Eos (auto) 0.31 10^3/uL 10^3/uL (0.03-0.40) Absolute Basos (auto) 0.07 10^3/uL 10^3/uL (0.02-0.10) Absolute Nucleated RBC 0.00 10^3/uL 10^3/uL (0-0.01) Immature Gran % 0.2 % % (0.0-1.1) Immature Gran # 0.01 10^3/uL 10^3/uL (0.00-0.10) PT 14.5 SEC SEC (12.0-15.0) INR 1.11 (0.83-1.16) APTT 31.4 SEC SEC (23.0-38.0) Sodium 142 mEq/L mEq/L (135-145) Potassium 4.0 mEq/L mEq/L (3.3-5.0) Chloride 105 mEq/L mEq/L (97-110) Carbon Dioxide 25 mEq/l mEq/l (22-31) Anion Gap 12 mEq/L mEq/L (8-16) BUN 12 mg/dL mg/dL (7-23) Creatinine 0.6 mg/dL L mg/dL (0.7-1.3) Estimated GFR > 60 Glucose 89 mg/dL mg/dL (70-100) Calcium 9.4 mg/dL mg/dL (8.5-10.4) Total Bilirubin 4.9 mg/dL H mg/dL (0.1-1.4) Conjugated Bilirubin 3.6 mg/dL H mg/dL (0.0-0.5) Unconjugated Bilirubin 1.3 mg/dL H mg/dL (0.0-1.1) AST 217 IU/L H IU/L (17-59) ALT 303 IU/L H IU/L (21-72) Alkaline Phosphatase 550 IU/L H IU/L (38-126) Creatine Kinase 29 IU/L IU/L (0-224) Total Protein 7.0 g/dL g/dL (6.3-8.2) Albumin 3.7 g/dL g/dL (3.5-5.0) Lipase 1206 IU/L H IU/L (23-300) Urine Color Urine Appearance Urine pH Ur Specific Magnolia Urine Protein Urine Ketones Urine Blood Urine Nitrate Urine Bilirubin Urine Urobilinogen Ur Leukocyte Esterase Urine RBC Urine WBC Ur Epithelial Cells Urine Glucose 08/28/17 18:25 WBC RBC Hgb Hct MCV MCH MCHC RDW Plt Count MPV Neut % (Auto) Lymph % (Auto) Lasalle % (Auto) Eos % (Auto) Baso % (Auto) Nucleat RBC Rel Count Absolute Neuts (auto) Absolute Lymphs (auto) Absolute Monos (auto) Absolute Eos (auto) Absolute Basos (auto) Absolute Nucleated RBC Immature Gran % Immature Gran # PT INR APTT Sodium Potassium Chloride Carbon Dioxide Anion Gap BUN Creatinine Estimated GFR Glucose Calcium Total Bilirubin Conjugated Bilirubin Unconjugated Bilirubin AST ALT Alkaline Phosphatase Creatine Kinase Total Protein Albumin Lipase Urine Color DIANA Urine Appearance CLEAR Urine pH 6.0 (5.0-7.5) Ur Specific Magnolia 1.005 (1.002-1.030) Urine Protein NEGATIVE (NEGATIVE) Urine Ketones NEGATIVE (NEGATIVE) Urine Blood NEGATIVE (NEGATIVE) Urine Nitrate NEGATIVE (NEGATIVE) Urine Bilirubin NEGATIVE (NEGATIVE) Urine Urobilinogen NEGATIVE EU EU (0.2-1.0) Ur Leukocyte Esterase NEGATIVE (NEGATIVE) Urine RBC NONE SEEN /hpf /hpf (0-3) Urine WBC 1-3 /hpf /hpf (0-3) Ur Epithelial Cells TRACE /lpf /lpf (NONE-1+) Urine Glucose NEGATIVE (NEGATIVE) Medications Given: Discontinued Medications Sodium Chloride (Ns) 1,000 mls @ 0 mls/hr IV EDNOW ONE; Wide Open PRN Reason: Protocol Stop: 08/28/17 18:29 Last Admin: 08/28/17 19:07 Dose: 1,000 mls Departure - Departure Disposition: [facility] Inpatient Acute Clinical Impression: Pancreatic mass Condition: Good
[2017-08-28 19:07] LABS: PLATELET COUNT 220 10^3/uL (150-400)
[2017-08-28 19:20] LABS: INR 1.11 (0.83-1.16); PROTIME(PATIENT) 14.5 SEC (12.0-15.0)
[2017-08-28 19:26] LABS: CREATINE KINASE 29 IU/L (0-224)
[2017-08-28] MEDS ORDERED: IOPAMIDOL (ISOVUE-300) 100 ML BTL ONE (19:33)
[2017-08-28] MEDS ORDERED: PROMETHAZINE HCL 25 MG/ML INJ IVP PRN (21:33)
[2017-08-28] MEDS ORDERED: ACETAMINOPHEN 325 MG TAB PO PRN (21:33)
[2017-08-28] MEDS ORDERED: oxyCODONE IR 5 MG TAB PO PRN (21:33)
--- NOTE | 2017-08-28 22:13 | GHP ---
[f rep st] HISTORY AND PHYSICAL DATE OF ADMISSION: 08/28/2017 CHIEF COMPLAINT: Weight loss, dark urine, change in stools. HPI: This is a 62-year-old male with a history of coronary artery disease and cerebellar atrophy, wi th chronic speech and balance difficulties, who was admitted to [facility] last month where he was treated for a duodenal ulcer and duodenitis. The EGD was done that showed an ulcer. H e was started on a PPI and sent home. Since leaving the hospital, the patient states his appetite has been quite poor. He has been losing weight. Over the past few days, he has developed some itching of his skin, some darkening of his uri ne, and some whitish colored stools. In the emergency department, a CT scan of the abdomen and pelvis was done, which revealed development of intrahepatic and extrahepatic bile duct dilation, as well as pronounced enlargement at the head o f the pancreas concerning for underlying neoplasm. PAST MEDICAL HISTORY: 1. Coronary artery disease, status post stents, 2007. 2. Hypertension. 3. Cerebellar ataxia, wheelchair bound. HOME MEDICATIONS: Refer to [employer] for details. ALLERGIES: No known drug allergies. SOCIAL HISTORY: He denies any alcohol or tobacco[place] FAMILY HISTORY: Reviewed and noncontributory. REVIEW OF SYSTEMS: Comprehensive 10-point review of systems was done and is negative except as menti oned in HPI. PHYSICAL EXAM: VITAL SIGNS: Blood pressure 134/80, pulse 79, respiratory rate 16, O2 sat 97% on alexandra m air, temperature afebrile. GENERAL: No acute distress. HEAD: Normocephalic, atraumatic. EYES: PERRLA. Sclerae mildly icteric. NECK: Supple. No lymphadenopathy. CARDIOVASCULAR: S1, S2. No JVD. No lower extremity edema. PULMONARY: Lungs are clear. No wheezes, rales, or rhonchi. ABDOME N: Soft, nontender, nondistended. No guarding or rebound tenderness. Normoactive bowel sounds. EX TREMITIES: No clubbing or cyanosis. NEURO: Cranial nerves 2-12 grossly intact. SKIN: Mild jaundi ce. DIAGNOSTICS: WBC 6, hemoglobin 15.2, hematocrit 46.2, platelets 220. Sodium 143, potassium 4, chlor srinivasan 105, CO2 of 25, BUN 12, creatinine 0.6, glucose 89, total bilirubin 4.9, conjugated bilirubin 3.6 , AST 217, ALT 303, alkaline phosphatase 550, lipase 1206. UA: Unremarkable. H pylori done last mo nth was negative. CT of the abdomen and pelvis was reviewed, showing interim development of intrahep atic and extrahepatic bile duct dilation, as well as pronounced enlargement and diminished attenuatio n of the pancreatic head, worrisome for underlying malignancy with several peripancreatic lymph nodes . See report for full details. Abdominal ultrasound was reviewed. Refer to report for details. ASSESSMENT AND PLAN: This is a 62-year-old male, who was hospitalized last month with a duodenal ulc er and duodenitis, presents today with itching, weight loss, and white-colored stools, found to have: 1. Intrahepatic and extrahepatic bile duct dilation with new pancreatic mass concerning for malignan cy. Plan: The patient will be admitted to the hospital. I have called Dr. Doty, who is on-call fo GI, to consider ERCP and biopsy. We will repeat LFTs in the morning. We will place him n.p.o. aft er midnight. 2. Elevated lipase, most likely due to above. Plan: The patient is currently without any abdominal pain. I suspect is lipase is elevated due to the pancreatic pathology, as listed above. Start him on a light diet. Once again, he will be n.p.o. after midnight. 3. The patient requests to be full code status for now. /[id number]/MODL
[2017-08-28] MEDS: NS 1,000 ML IV SCH (23:35)
[2017-08-29 04:48] LABS: PLATELET COUNT 184 10^3/uL (150-400)
[2017-08-29] MEDS: PANTOPRAZOLE SODIUM 40 MG TAB PO SCH ×2 (08:46→08:48)
[2017-08-29] MEDS ORDERED: ENOXAPARIN 40 MG/0.4 ML SYR SC SCH (09:00)
--- NOTE | 2017-08-29 13:47 | GCON ---
[f rep st] CONSULTATION REFERRING PHYSICIAN: Julián Mesa DO Consultation is for jaundice. Dear Dr. Mesa: Thank you very kindly for asking me to evaluate the patient in consultation for a chief complaint of jaundice. He is a very pleasant 62-year-old gentleman who developed pruritus, tea-colored urine, and acholic stools over the last week. He was healthy prior to this. He denies any abdominal pain, sonal sea, vomiting, or weight loss. He has no history of a pancreatic or biliary medical history. There is no family history of pancreatic malignancy. CT scan of the abdomen and pelvis showed dilated bile ducts with a mass in the head of the pancreas. Interestingly, in July, he was admitted for a duodena l ulcer with peripancreatic inflammation that was thought to be secondary to the duodenal ulcer invol ving the pancreas. His lipase was elevated, and his LFTs were obstructed clear. We are asked to ass ist with further evaluation and management. PAST MEDICAL HISTORY: Significant for cerebellar atrophy, the cause of which has been unknown, which has left him with speech disorders, musculoskeletal problems, and ataxia. He is wheelchair bound be cause of this. He has had a reported duodenal ulcer, coronary disease with stenting, and hypertensio n. PAST SURGICAL HISTORY: None. HOME MEDICATIONS: Include atenolol, Lipitor, Lexapro, and pantoprazole ALLERGIES: None known. 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 He lives in [place] and is . He h as 1 biologic son. No tobacco, alcoholism, or substance abuse history. REVIEW OF SYSTEMS: CONSTITUTIONAL: Denies fever, chills, anorexia, or weight loss. HEENT: Reports scleral icterus. No dysphagia or odynophagia. No sore throat. No rhinorrhea. No epistaxis. No h eadache. He does occasionally get diplopia and vertigo symptoms related to his cerebellar disease. PULMONARY: No cough or shortness of breath. CARDIOVASCULAR: No chest pain or palpitations. GASTRO INTESTINAL: He reports that his stools have been pale in color. No diarrhea. No constipation. No change in bowel habits. No abdominal pain. No dysphagia. RHEUMATOLOGIC: No joint pain or swelling . DERMATOLOGIC: He has had pruritus and jaundice. NEUROLOGIC: He has chronic ataxia, weakness in the proximal extremities, and is wheelchair bound. He sometimes reports diplopia and dizziness, that are associated with nausea, that are thought to be due to his cerebellar disease. GENITOURINARY: D enies flank pain, hematuria, or dysuria. ENDOCRINE: Denies heat or cold intolerance. No polyuria o r polydipsia. PHYSICAL EXAMINATION: VITAL SIGNS: Blood pressure 122/86, pulse is 79, respirations are 17, oxygena tion is 93% on room air, temperature is 36.7. GENERAL: In no acute distress. HEENT: Oropharynx is clear. Sclerae are icteric. NECK: Supple. PULMONARY: Clear to auscultation bilaterally. CARDIO VASCULAR: Regular rate and rhythm. Without murmur, rub, or gallop. GI: Abdomen is soft. No palpa ble mass or lesion. No tenderness, rebound, or guarding. Normal bowel sounds. No distention. No a scites. RHEUMATOLOGIC: No joint deformity or swelling. No clubbing or cyanosis. DERMATOLOGIC: Ja undiced. Without rash or lesion. NEUROLOGIC: Alert to person, place, and time. His speech is some what dysarthric. Weakness in the proximal extremities symmetrically. No tremor. DATABASE: Includes the following: White blood count 5.6, hematocrit 41.1, platelets are 184. INR i s 1.11, with a PT of 14.5. Sodium 142, potassium 4.1, chloride 108, bicarbonate 24, BUN 9, creatinin e 0.6, glucose 87. Total bilirubin is 4.8, with a direct of 3.9, AST 200, ALT 276, alkaline phosphat ase 453. Lipase was 1206. Albumin is 2.9, with a total protein of 5.9. IMAGING: Includes a CT scan of the abdomen and pelvis on August 28, 2017. This was performed with ora l and IV contrast. This shows intra and extrahepatic biliary ductal dilatation with tortuosity of a dilated distal common bile duct up to 15 mm. There is thickening associated with the second portion of the duodenum. The peripancreatic head is enlarged and full, measuring 4.4 x 5.1 cm, and is hypode nse relative to the pancreatic neck, body, and tail. There is also some pancreatic ductal dilatation . The radiographic impression is concerning for a pancreatic head neoplasm. There are also numerous enlarged peripancreatic lymph nodes. The gallbladder is somewhat hydropic with dependent gallstones . The spleen is normal. IMPRESSIONS: 1. Jaundice. 2. Dilated intrahepatic and extrahepatic biliary ductal system to the level of the pancreatic head. 3. Radiographic evidence of a pancreatic head mass, with associated pancreatic ductal and biliary du ctal dilatation. 4. Obstructed liver tests. 5. Elevated lipase, without abdominal pain. RECOMMENDATIONS: 1. He may eat today. 2. Endoscopic ultrasound with fine-needle aspirate of the pancreatic mass, followed by ERC with bili zaida stent placement. 3. If the pathology is confirmatory of the suspected pancreatic mass being cancer, a covered metal s tent will be placed. If, however, the biopsies are nondiagnostic, then likely a plastic biliary sten t will be placed until further diagnostic information can be obtained. 4. Repeat LFTs, chemistry, CBC, PT, and INR in the morning. 5. N.p.o. after midnight. 6. Anesthesia consultation for his procedure will be arranged due to his underlying cerebellar atrop hy, age, and the nature of the procedures being performed. 7. Further recommendations to follow his procedures, which are tentatively slated for 4 o'clock on [place]. /[id number]/MODL
--- NOTE | 2017-08-29 14:03 | PDMN ---
Medical Necessity Medical necessity: Pt meets IP criteria per MD; est los >2mn for eval/tx of pancreatic mass; admit for further workup/monitoring & GI consult w/possible ERCP & biopsy; hx cerebellar ataxia w/chronic speech & balance issues, wc bound ; per H&P & order 08/28/17
--- NOTE | 2017-08-29 16:27 | HOSPPROG ---
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 here w painless jaundice, pancreatic head mass pancreatic head mass: concerning for malignancy eus w biopsy in AM obstructive jaundice: plan is for stent placement in AM lft's stable afebrile, reasonable to hold abx recent duodenal ulcer: suspect this was related to local ischemia from pancreatic head mass, but not clear NO SIGNS BLEEDING NOW proph: LMWH after procedures dispo: intpt Subjective: case d/w dr nugent Objective: Vital Signs Temp Pulse Resp BP Pulse Ox 36.7 C 79 17 122/86 H 93 08/29/17 12:15 08/29/17 12:15 08/29/17 12:15 08/29/17 12:15 08/29/17 12:15 Laboratory Results 08/29/17 04:11 08/29/17 04:11 08/28/17 08/29/17 08/30/17 05:59 05:59 05:59 Intake Total 250 Output Total 455 Balance -205 PT 14.5 SEC (12.0-15.0) 08/28/17 18:51 INR 1.11 (0.83-1.16) 08/28/17 18:51 - Physical Exam Constitutional: no apparent distress, appears nourished Eyes: PERRL, anicteric sclera Ears, Nose, Mouth, Throat: moist mucous membranes, hearing normal Cardiovascular: regular rate and rhythym, no murmur, rub, or gallop Respiratory: no respiratory distress, no rales or rhonchi Gastrointestinal: normoactive bowel sounds, soft, non-tender abdomen Genitourinary: no bladder fullness, No clements in urethra Skin: warm, normal color Musculoskeletal: full muscle strength, no muscle tenderness Neurologic: AAOx3 ICD10 Worksheet Patient Problems: Problems Problem Status Onset Pancreatic mass Acute Duodenal ulcer Acute
[2017-08-29] MEDS: ATENOLOL 25 MG TAB PO SCH (16:42)
[2017-08-29] MEDS: ATORVASTATIN CALCIUM 40 MG TAB PO SCH (16:43)
[2017-08-29] MEDS: ESCITALOPRAM OXALATE 10 MG TAB PO SCH (16:43)
[2017-08-30 04:40] LABS: PLATELET COUNT 195 10^3/uL (150-400)
[2017-08-30] MEDS: PANTOPRAZOLE SODIUM 40 MG TAB PO SCH (08:37)
[2017-08-30] MEDS ORDERED: IOTHALAMATE MEG (CONRAY) 50 ML VIAL IV ONE (14:49)
[2017-08-30] MEDS ORDERED: GLUCAGON HCL 1 MG VIAL ONE (14:49)
[2017-08-30] MEDS ORDERED: LR 1,000 ML IV ONE (15:29)
--- NOTE | 2017-08-30 15:48 | HOSPPROG ---
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 here w painless jaundice, pancreatic head mass pancreatic head mass: concerning for malignancy eus w biopsy today obstructive jaundice: plan is for stent placement in AM lft's stable, trending down slightly afebrile, reasonable to hold abx recent duodenal ulcer: suspect this was related to local ischemia from pancreatic head mass, but not clear NO SIGNS BLEEDING NOW proph: LMWH after procedures dispo: intpt Subjective: case d/w dr nugent Objective: Vital Signs Temp Pulse Resp BP Pulse Ox 36.6 C 80 16 121/86 H 96 08/30/17 15:43 08/30/17 15:43 08/30/17 15:43 08/30/17 15:43 08/30/17 15:43 Laboratory Results 08/30/17 04:20 08/30/17 04:20 08/29/17 08/30/17 08/31/17 05:59 05:59 05:59 Intake Total 250 400 Output Total 455 700 Balance -205 -300 PT 14.5 SEC (12.0-15.0) 08/28/17 18:51 INR 1.11 (0.83-1.16) 08/28/17 18:51 - Physical Exam Constitutional: no apparent distress, appears nourished Eyes: PERRL, anicteric sclera Ears, Nose, Mouth, Throat: moist mucous membranes, hearing normal Cardiovascular: regular rate and rhythym, no murmur, rub, or gallop Respiratory: no respiratory distress, no rales or rhonchi Gastrointestinal: normoactive bowel sounds, soft, non-tender abdomen Genitourinary: no bladder fullness, No clements in urethra Skin: warm, normal color Musculoskeletal: full muscle strength Neurologic: AAOx3 ICD10 Worksheet Patient Problems: Problems Problem Status Onset Pancreatic mass Acute Duodenal ulcer Acute
--- NOTE | 2017-08-30 15:52 | PDANEPAE ---
ANE History of Present Illness pancreatic mass s/f EUS/ERCP/stent ANE Past Medical History - Cardiovascular History Hx Hypertension: Yes - Pulmonary History Hx Oxygen in Use at Home: No Hx Sleep Apnea: No Sleep Apnea Screening Result - Last Documented: Negative - Endocrine History Hx Diabetes: No - Liver History Hepatic History Comment: dyslipidemia,. new elevated LFT's - Chronic Pain History Chronic Pain: No ANE Review of Systems Review of Systems: - Exercise capacity Exercise capacity: limited by disability ANE Patient History - Allergies Allergies/Adverse Reactions: No Known Allergies Allergy (Unverified 08/28/17 17:58) - Home Medications Home medications: home medication list seen and reviewed Home Medications: Atenolol [Tenormin 25 mg (*)] 25 mg PO DAILY@07/05/17 [Last Taken 08/27/17] Atorvastatin Calcium [Lipitor 40 mg (*)] 40 mg PO DAILY@07/05/17 [Last Taken 08/27/17] Escitalopram Oxalate [Lexapro 10 MG] 10 mg PO DAILY@07/05/17 [Last Taken ] - NPO status NPO Since - Liquids (Date): 08/30/17 NPO Since - Liquids (Time): 08:00 NPO Since - Solids (Date): 08/30/17 NPO Since - Solids (Time): 08:00 - Smoking Hx Smoking Status: Former smoker ANE Labs/Vital Signs - Labs Result Diagrams: 08/30/17 04:20 08/30/17 04:20 - Vital Signs Blood Pressure: 121/86 Heart Rate: 80 Respiratory Rate: 16 O2 Sat (%): 96 Height: 170.18 cm Weight: 65.771 kg ANE Physical Exam - Airway Neck exam: decreased ROM Mallampati Score: Class 2 Mouth exam: normal dental/mouth exam - Pulmonary Pulmonary: no respiratory distress - Cardiovascular Cardiovascular: regular rate and rhythym - ASA Status ASA Status: II ANE Anesthesia Plan Anesthesia Plan: general endotracheal anesthesia
[2017-08-30] MEDS ORDERED: REMIFENTANIL HCL 1 MG VIAL ONE (16:05)
[2017-08-30] MEDS ORDERED: PROPOFOL/EMULSION 500 MG/50 ML BOTTLE IV ONE (16:05)
[2017-08-30] MEDS ORDERED: DEXAMETHASONE 4 MG/ML VIAL ONE (16:07)
[2017-08-30] MEDS ORDERED: ONDANSETRON 4 MG/2 ML VIAL ONE (16:07)
[2017-08-30] MEDS ORDERED: LIDOCAINE HCL 160 MG/4 ML LTA KIT TP ONE (16:07)
[2017-08-30] MEDS ORDERED: LIDOCAINE 2% 100 MG/5 ML SYR ONE (16:07)
[2017-08-30] MEDS ORDERED: PHENYLEPHRINE HCL 100 MCG/ML SYR ONE ×2 (16:24→17:02)
[2017-08-30] MEDS ORDERED: ePHEDrine SULFATE 25 MG/5 ML SYR ONE (16:46)
--- NOTE | 2017-08-30 17:50 | GIREPORT ---
[facility] Surgical Services - Endoscopy Department Patient Name: Sabas Funes Procedure Date: 08/30/2017 4:13 PM Patient Type: Inpatient Attending MD/ ER Physician: Jose Elias Berman MD Procedure: Upper EUS Indications: Suspected mass in pancreas on CT scan, Weight loss, Anorexia Patient Profile: 62 year old male presents for evaluation of anorexia, nausea, weight lo ss, and abnormal imaging. Providers: Jose Elias Berman MD Medicines: General Anesthesia Complications: No immediate complications. Estimated blood loss: Minimal. Description of Procedure: After obtaining informed consent, the endoscope was passed under direct vision. Throughout the procedure, the patient's blood pressure, pulse, and oxygen saturations were monitored continuously. The Endosonoscope was introduced through the mouth, and advanced to the second part of duoden um. The esophagus, stomach, and duodenum were visualized endosonographicall y. The Endoscope was introduced through the mouth, and advanced to the sec ond part of duodenum. Findings: Endoscopic Finding : The examined esophagus was normal. Patchy mildly erythematous mucosa was found in the gastric body and in the gastric antrum. Biopsies were taken with a cold forceps for histology. Diffuse nodular mucosa with many small superficial ulcerations was foun d in the duodenal bulb and in the second portion of the duodenum. Biopsies w ere taken with a cold forceps for histology. Endosonographic Finding : An irregular mass was identified in the pancreatic head. The mass was hypoechoic. The mass measured 27 mm in maximal cross-sectional diameter . The endosonographic borders were poorly-defined. Fine needle aspiration for cytology was performed. Color Doppler imaging was utilized prior to nee dle puncture to confirm a lack of significant vascular structures within th e needle path. Four passes were made with the 25 gauge needle using a transduodenal approach. A stylet was used. A international flight attendant was present and performed a preliminary cytologic examination. The cellularity of the specimen was adequate. Final cytology results are pending. Fine needle biopsy was performed. Color Doppler imaging was utilized prior to needl e puncture to confirm a lack of significant vascular structures within th e needle path. One pass was made with the 25 gauge ultrasound biopsy need le using a transduodenal approach. A visible core of tissue was obtained. Pancreatic parenchymal abnormalities were noted in the pancreatic body. These consisted of lobularity. The pancreatic duct had a prominently branched endosonographic appearan ce and had hyperechoic arrington in the entire pancreas. A few malignant-appearing lymph nodes were visualized in the peripancre atic region. These were twenty mm from the primary tumor. The largest measur ed 13 mm by 10 mm in maximal cross-sectional diameter. The nodes were round, hypoechoic and had well defined margins. Fine needle aspiration for cyt ology was performed. Color Doppler imaging was utilized prior to needle punct ure to confirm a lack of significant vascular structures within the needle path. Two passes were made with the 25 gauge needle using a transduodenal approach. A stylet was used. A international flight attendant was present and performed a preliminary cytologic examination. The cellularity of the specimen was adequate. Final cytology results are pending. There was dilation in the common bile duct and in the gallbladder which measured up to 12 mm. There was no sign of significant endosonographic abnormality in the visualized portion of the liver. No masses were identified. Estimated Blood Loss: Estimated blood loss was minimal. Post Op Diagnosis: - Normal esophagus. - Erythematous mucosa in the gastric body and antrum. Biopsied. - Nodular mucosa with small superficial ulcerations in the duodenal bul b and in the second portion of the duodenum. Biopsied. - A mass was identified in the pancreatic head. FNA and FNB performed. - Pancreatic parenchymal abnormalities consisting of lobularity were no denae in the pancreatic body. - The pancreatic duct had a prominently branched endosonographic appear ance and had hyperechoic arrington in the entire pancreas. - A few malignant-appearing lymph nodes were visualized in the peripancreatic region. Fine needle aspiration performed. - There was dilation in the common bile duct and in the gallbladder whi ch measured up to 12 mm. - There was no evidence of significant pathology in the visualized port ion of the liver. Recommendation: - Perform an ERCP today. - Await cytology results and await path results. - Thank you for allowing me to participate in the care of your patient. Jose Elias Berman MD Jose Elias Berman MD 08/30/2017 5:50:24 PM This report has been signed electronicallyJose Elias Berman MD Number of Addenda: 0 Note Initiated On: 08/30/2017 4:13 PM [email or web address]
[2017-08-30] MEDS ORDERED: INDOMETHACIN 50 MG SUPP PR ONE (17:59)
--- NOTE | 2017-08-30 18:31 | GIREPORT ---
[facility] Surgical Services - Endoscopy Department Patient Name: Sabas Funes Procedure Date: 08/30/2017 5:47 PM Patient Type: Inpatient Attending MD/ ER Physician: Jose Elias Berman MD Procedure: ERCP Indications: Abnormal abdominal CT, Biliary dilation on Computed Tomogram Scan, Bili zaida obstruction Patient Profile: 62 year old male presents for biliary decompression. Providers: Jose Elias Berman MD Medicines: General Anesthesia, Indomethacin 100 mg [place] Complications: No immediate complications. Estimated blood loss: Minimal. Description of Procedure: After obtaining informed consent, the scope was passed under direct vis ion. Throughout the procedure, the patient's blood pressure, pulse, and oxyg en saturations were monitored continuously. The Duodenalscope was introduc ed through the mouth, and advanced to the duodenum and used to inject cont rast into the bile duct. The ERCP was accomplished without difficulty. The patient tolerated the procedure well. Findings: The tank farm operator film was normal. The esophagus was successfully intubated und er direct vision. The scope was advanced to a normal major papilla in the descending duodenum without detailed examination of the pharynx, larynx and associated structures, and upper GI tract. The upper GI tract was gross ly normal. A wire was passed into the biliary tree. The short-nosed tracti on sphincterotome was passed over the guidewire and the bile duct was then deeply cannulated. Contrast was injected. I personally interpreted the bile duct images. Ductal flow of contrast was adequate. Image quality was adequate. Contrast extended to the entire biliary tree. A distal 3cm stricture was noted. A minimal stricture may be present in the CHD area . A 10 mm biliary sphincterotomy was made with a traction (standard) sphincterotome using pure cut current. The sphincterotomy oozed blood. The biliary tree was swept with a 12 mm balloon starting at the bifurcation . Sludge was swept from the duct. Cytology brushings performed. One 10 mm by 6 cm covered metal stent was placed into the common bile duct. Bile flowe d through the stent. The stent was in good position. Estimated Blood Loss: Estimated blood loss was minimal. Post Op Diagnosis: - A biliary sphincterotomy was performed. - The biliary tree was swept and sludge was found. - CBD brushing performed. - One covered metal stent was placed into the common bile duct. Recommendation: - [facility]. - NPO. - Continue present medications. - Await cytology results. - Thank you for allowing me to participate in the care of your patient. Attending Participation: I personally performed the entire procedure. Jose Elias Berman MD Jose Elias Berman MD 08/30/2017 6:30:51 PM This report has been signed electronicallyJose Elias Berman MD Number of Addenda: 0 Note Initiated On: 08/30/2017 5:47 PM [email or web address]
[2017-08-30] MEDS ORDERED: oxyCODONE IR 5 MG TAB PO PRN (18:37)
[2017-08-30] MEDS ORDERED: ALBUTEROL 3 ML DEYVIAL IH PRN (18:37)
[2017-08-30] MEDS ORDERED: DEXAMETHASONE 4 MG/ML VIAL IVP PRN (18:37)
[2017-08-30] MEDS ORDERED: NALOXONE HCL 0.4 MG/ML INJ IVP PRN (18:37)
[2017-08-30] MEDS ORDERED: PHENYLEPHRINE HCL 100 MCG/ML SYR IVP PRN (18:37)
[2017-08-30] MEDS ORDERED: METOCLOPRAMIDE 10 MG/2 ML VIAL IVP PRN (18:37)
[2017-08-30] MEDS ORDERED: ONDANSETRON 4 MG/2 ML VIAL IVP PRN (18:37)
[2017-08-30] MEDS ORDERED: MEPERIDINE 25 MG/0.5 ML AMP IVP PRN (18:37)
[2017-08-30] MEDS ORDERED: fentaNYL 100 MCG/2 ML INJ IVP PRN (18:37)
[2017-08-30] MEDS ORDERED: LR 500 ML IV PRN (18:37)
[2017-08-30] MEDS ORDERED: LABETALOL HCL 5 MG/ML 20 ML MDV IVP PRN (18:37)
[2017-08-30] MEDS ORDERED: PROMETHAZINE HCL 25 MG/ML INJ IVP PRN (18:37)
[2017-08-30] MEDS: NS 1,000 ML IV SCH (19:50)
[2017-08-30] MEDS: ONDANSETRON 4 MG/2 ML VIAL IVP PRN (19:52)
[2017-08-30] MEDS ORDERED: HYDROmorphONE/DILAUDID 1 MG/ML INJ IVP PRN (19:52)
[2017-08-30] MEDS: ATORVASTATIN CALCIUM 40 MG TAB PO SCH (19:53)
[2017-08-30] MEDS: ATENOLOL 25 MG TAB PO SCH (19:53)
[2017-08-30] MEDS: ESCITALOPRAM OXALATE 10 MG TAB PO SCH (19:53)
[2017-08-31 05:03] LABS: PLATELET COUNT 180 10^3/uL (150-400)
[2017-08-31] MEDS: PANTOPRAZOLE SODIUM 40 MG TAB PO SCH (07:25)
--- NOTE | 2017-08-31 11:44 | SOAPPROG ---
SOAP Progress Note Assessment/Plan: Assessment: 1. Pancreatic head mass 2. Biliary obstruction 3. Epigastric pain 4. Nausea 5. Elevated LFTs 6. Pruritus Plan: 1. Low fat diet 2. Monitor pain. Likely procedural related and should improve. Perhaps a mild pancreatitis or related to biopsy, endoscopic manipulation and stent deployment 3. Path results next week 4. If pain worsens check a lipase and make NPO 5. Ok for discharge when ready per primary team 6. GI f/u in 6-8 week. Repeat LFTs in 2 weeks 7. Pruritus and jaundice will continue to improve slowly. 08/31/17 11:41 Subjective: CC: epigastric pain 7/10 Nausea worse than baseline Still with light colored stools and some mild BRBPR today. Stool pale and non- bloody. No rectal pain or diarrhea. No melena Pruritus about the same. Objective: Vital Signs Temp Pulse Resp BP Pulse Ox 36.7 C 92 16 122/80 H 95 08/31/17 07:27 08/31/17 07:27 08/31/17 07:27 08/31/17 07:27 08/31/17 07:27 Laboratory Results 08/31/17 04:28 08/31/17 04:28 08/30/17 08/31/17 09/01/17 05:59 05:59 05:59 Intake Total 400 500 883 Output Total 700 1200 Balance -300 -700 883 PT 14.5 SEC (12.0-15.0) 08/28/17 18:51 INR 1.11 (0.83-1.16) 08/28/17 18:51 Physical Exam - Physical Exam General Appearance: no apparent distress EENT: scleral icterus (R), scleral icterus (L) Neck: supple Respiratory: lungs clear Cardiac/Chest: regular rate, rhythm Abdomen: non-tender, soft, No distended, No guarding, No rebound, No mass, No hepatomegaly, No ascites ICD10 Worksheet Patient Problems: Problems Problem Status Onset Pancreatic mass Acute Duodenal ulcer Acute
--- NOTE | 2017-08-31 13:14 | HOSPPROG ---
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 some abdominal pain, but did eat breakfast w no increase in abdominal pain Objective: Vital Signs Temp Pulse Resp BP Pulse Ox 36.7 C 63 16 127/78 H 98 08/31/17 12:04 08/31/17 12:04 08/31/17 12:04 08/31/17 12:04 08/31/17 12:04 Laboratory Results 08/31/17 04:28 08/31/17 04:28 08/30/17 08/31/17 09/01/17 05:59 05:59 05:59 Intake Total 400 500 883 Output Total 700 1200 Balance -300 -700 883 PT 14.5 SEC (12.0-15.0) 08/28/17 18:51 INR 1.11 (0.83-1.16) 08/28/17 18:51 - Physical Exam Constitutional: no apparent distress, appears nourished Eyes: PERRL, anicteric sclera Ears, Nose, Mouth, Throat: moist mucous membranes, hearing normal Cardiovascular: regular rate and rhythym, no murmur, rub, or gallop Respiratory: no respiratory distress, no rales or rhonchi Gastrointestinal: normoactive bowel sounds, soft, non-tender abdomen, No guarding, No rebound Genitourinary: no bladder fullness, No clements in urethra Skin: warm, normal color Musculoskeletal: full muscle strength Neurologic: AAOx3 Psychiatric: interacting appropriately ICD10 Worksheet Patient Problems: Problems Problem Status Onset Pancreatic mass Acute Duodenal ulcer Acute
[2017-08-31] MEDS: ESCITALOPRAM OXALATE 10 MG TAB PO SCH (15:01)
[2017-08-31] MEDS: ATORVASTATIN CALCIUM 40 MG TAB PO SCH (15:01)
[2017-08-31] MEDS: ATENOLOL 25 MG TAB PO SCH (15:01)
[2017-08-31] MEDS: ENOXAPARIN 40 MG/0.4 ML SYR SC SCH (15:01)
--- NOTE | 2017-08-31 15:55 | ASMTCMCOM ---
CM Note CM Note Notes: Pt admitted with pancreatic mass. Biopsy results pending. Pt had a metal stent placed yesterday. Pt's DC needs unclear. CM to follow. Date Signed: 08/31/2017 03:54 PM Electronically Signed By:Tessa Connor LCSW
[2017-09-01 05:03] LABS: PLATELET COUNT 230 10^3/uL (150-400)
[2017-09-01] MEDS: ONDANSETRON 4 MG/2 ML VIAL IVP PRN (05:13)
[2017-09-01] MEDS: ENOXAPARIN 40 MG/0.4 ML SYR SC SCH (09:26)
[2017-09-01] MEDS: PANTOPRAZOLE SODIUM 40 MG TAB PO SCH (09:26)
[2017-09-01 13:04] VITALS: BP 130/81
--- NOTE | 2017-09-01 13:50 | HOSPPROG ---
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 here w painless jaundice, pancreatic head mass pancreatic head mass: concerning for malignancy eus w biopsy yesterday obstructive jaundice: plan is for stent placement in AM lft's stable, trending down slightly afebrile, reasonable to hold abx lft's improved post metal stent abdominal pain: suspect procedure/stent related as opposed to post ercp pancreatits continue diet observe overnight recent duodenal ulcer: suspect this was related to local ischemia from pancreatic head mass, but not clear NO SIGNS BLEEDING NOW proph: LMWH after procedures dispo: home today outpt follow up for path Subjective: feels well. less abdominal pain. eating. no vomiting afebrile. Objective: Vital Signs Temp Pulse Resp BP Pulse Ox 36.7 C 62 16 130/81 H 93 09/01/17 13:02 09/01/17 13:02 09/01/17 13:02 09/01/17 13:02 09/01/17 13:02 Laboratory Results 09/01/17 04:19 09/01/17 04:19 08/31/17 09/01/17 09/02/17 05:59 05:59 05:59 Intake Total 500 2186 Output Total 1200 900 350 Balance -700 1286 -350 PT 14.5 SEC (12.0-15.0) 08/28/17 18:51 INR 1.11 (0.83-1.16) 08/28/17 18:51 - Physical Exam Constitutional: no apparent distress, appears nourished Eyes: PERRL, anicteric sclera Ears, Nose, Mouth, Throat: moist mucous membranes, hearing normal Cardiovascular: regular rate and rhythym, no murmur, rub, or gallop Respiratory: no respiratory distress, no rales or rhonchi Gastrointestinal: normoactive bowel sounds, soft, non-tender abdomen Genitourinary: no bladder fullness, No clements in urethra Skin: warm, normal color Musculoskeletal: full muscle strength Neurologic: AAOx3 Psychiatric: interacting appropriately ICD10 Worksheet Patient Problems: Problems Problem Status Onset Pancreatic mass Acute Duodenal ulcer Acute
--- NOTE | 2017-09-01 15:18 | ASMTCMCOM ---
CM Note CM Note Notes: Pt to DC today and will f/u with path results as outpt. No DC needs identified. Date Signed: 09/01/2017 03:17 PM Electronically Signed By:Tessa Connor LCSW
--- NOTE | 2017-09-01 15:19 | ASMTLACE ---
LACE Length of stay for Answers: 4-6 days current admission Acuity / Level of Answers: Yes Care: Did the patient have an inpatient admission? Comorbidities - select Answers: Any tumor (including all that apply lymphoma or leukemia) Coronary Artery Disease Other Notes: HTN; cerebellar ataxia # of Emergency department Answers: 1-2 visits in the last 6 months Score: 13 Date Signed: 09/01/2017 03:18 PM Electronically Signed By:Tessa Connor LCSW
--- NOTE | 2017-09-01 18:07 | GDS ---
[f rep st] DISCHARGE SUMMARY Please see admission history and physical by Dr. Julián Mesa. The patient presented with weight loss, abdominal pain, pruritus, and dark urine. In the emergency department, he had an abdominal CT showi ng a pancreatic head mass, dilated biliary ducts, and elevated LFTs. He underwent an EUS with biopsy of pancreatic head mass as well as a metal stent placement. His LFTs trended down, including a bilirubin that went from 5-2. He had no signs of cholangitis or p ost ERCP pancreatitis and was tolerating an oral diet. The patient has pending pathology with followup for GI for those results. He was discharged home today on a regular diet. No prescriptions were provided. /[id number]/MODL
--- NOTE | 2017-09-11 14:21 | GPROG ---
[f rep st] PROGRESS NOTE POST-ANESTHESIA NOTE DATE OF SERVICE: 08/30/2017 The patient was seen in the recovery room about 7:00 on 08/30/2017, at which point he was doing very well. He was still on 2 L of oxygen via nasal cannula. He was hemodynamically stable. He was havin g no significant pain, nausea, vomiting, or other anesthetic complications. /[id number]/MODL
== END 2017-09-01 15:20 | disposition home or self-care (01) | DRG 374 ==
LOC: F1N 20:47 → OBSVTOIN 21:31
PROVIDERS: ADMIT Family Medicine; ATTEND Family Medicine
DX: D37.8 Neoplasm of uncertain behavior of other specified digestive organs (principal); K83.1 Obstruction of bile duct; G11.9 Hereditary ataxia, unspecified; I25.10 Atherosclerotic heart disease of native coronary artery without angina pectoris; I10 Essential (primary) hypertension; Z99.3 Dependence on wheelchair; Z95.5 Presence of coronary angioplasty implant and graft
CPT/HCPCS: 88184-90; 88185-91; 97161-GP; 97165-GO; 97530-GP; 97535-GO; C1874; G8978-GP-CI; G8979-GP-CI; G8980-GP-CI; G8987-GO-CI; G8988-GO-CI; G8989-GO-CI; J1100; J1170; J1610; J1650; J2001; J2370; J2405; J2704; Q9961; Q9967